=== PATIENT | female | born 1985 | race Caucasian/White ===

== ENCOUNTER 2018-10-07 09:59 | Emergency (ER) | payer OTHER ==
[2018-10-07 15:40] VITALS: BP 106/61; PULSE 86; RESP 18; TEMP 98.8; O2SAT 100
--- NOTE | 2018-10-09 09:42 | OBHP ---
Datetime: 10/07/2018 10:44 IP Adm Impression: , intrauterine IP Admit Plan: Observation/Evaluation; Discharge home Admit Comment, IP Provider: 33 y/o @ [address] Hilliard ([facility]) because of decreased feta l movement x 2 days. She reports feeling the baby move nightly beginning at 20 wks. She endorses hx o f low lying placenta with some vb that resolved 1.5 wks ago. She has been on bedrest since. Denies fl uid loss, vb at this time, ctx, f/c/n/v/cp/sob or dysuria. OBGYNhx: low lying placenta PMH: denies Allergies: denies Meds: PNV Surgx: denies Famhx: Both parents healthy Sochx: denies etOH, elicit drug or cigarette use ROS: 12 points reviewed and neg unless otherwise mentioned in HPI PE: VS: wnl Cardio: s1s2 RRR Lungs: cta b/l Abd: gravid, soft, nontender, no rigidity, no guarding [place]:FHR-103's; NST-reactive Ext:calves nontender, nonedematous A/P: 33 y/o , clinically stable @ 22 wks sent by PNP b/c of decreased movement x 2 days. -FHR in 130's with NST reactive _ reassuring -Patient counseled, reassured _ will fu with PNP in 2 weeks -Discharge home Patient seen and examined with Dr. Karis Pulido, PGY-1, FM Addendum: patient was seen and examined with resident and i agree with the above. Extremities - PN: Normal Abdomen - PN: Normal Lungs - PN: Normal Heart - PN: Normal General - PN: Normal Gestation - Est Wks by US: 22.0 IP Hx Assessment: The History has been Updated EGA AdmitDate IP: 22.0 Vital Signs Provider: Reviewed; Within Normal Limits IP Chief Complaint: Decreased movement
== END 2018-10-07 11:00 | disposition home or self-care (01) ==
LOC: H.EROB2 09:59 → H.EROB 10:37 → H.EROB2 11:00
DX: O36.8121 Decreased fetal movements, second trimester, fetus 1 (principal); Z3A.22 22 weeks gestation of pregnancy